=== PATIENT | male | born 1975 | race Caucasian/White ===

== ENCOUNTER 2017-02-27 10:09 | Emergency (ER) | payer OTHER, MEDICAID ==
[2017-02-27 11:25] VITALS: BP 98/66
--- NOTE | 2017-02-27 12:12 | RAD ---
INDICATION: Cough. COMPARISON: There are no prior studies available for comparison. TECHNIQUE: Dual-energy PA and lateral views of the chest were obtained. FINDINGS: The heart is within normal limits in size. Mediastinal and hilar contours appear within normal limits. The lungs are clear. No pleural effusion is present. IMPRESSION: NO EVIDENCE FOR ACTIVE CARDIOPULMONARY DISEASE.
--- NOTE | 2017-02-27 15:38 | UC ---
Respiratory Complaint HPI - HPI Summary HPI Summary: Patient presents with an unremarkable past medical history. He also complains of right elbow pain. He presents today with two day onset complaints of fever, fatigue, malaise, chest congestion and cough. He denies chest pain, abdominal pain, nausea, vomiting, diarrhea, rash. - History of Current Complaint Chief Complaint: UCGeneralIllness Stated Complaint: FEVER CHILLS COUGH Time Seen by Provider: 02/27/17 11:34 Hx Obtained From: Patient Onset/Duration: Gradual Onset, Lasting Days Severity Initially: Mild Severity Currently: Mild Pain Intensity: 0 Pain Scale Used: 0-10 Numeric Character: Cough: Nonproductive Alleviating Factors: Nothing Associated Signs And Symptoms: Positive: URI, Nasal Congestion, Sinus Discomfort - Risk Factors Pulmonary Embolism Risk Factors: Negative Pseudomonas Risk Factors: Negative Tuberculosis Risk Factors: Negative - Allergies/Home Medications Allergies/Adverse Reactions: Allergies Allergy/AdvReac Type Severity Reaction Status Date / Time No Known Allergies Allergy Verified 02/27/17 11:22 PMH/Surg Hx/FS Hx/Imm Hx Previously Healthy: Yes - Surgical History Surgical History: None - Family History Known Family History: Positive: None - Social History Occupation: Employed Full-time Lives: With Family Alcohol Use: Rare Substance Use Type: None Smoking Status (MU): Never Smoked Tobacco Review of Systems Constitutional: Fever, Fatigue Skin: Negative Eyes: Negative ENT: Negative, Nasal Discharge Respiratory: Cough Cardiovascular: Negative Gastrointestinal: Negative Genitourinary: Negative Motor: Negative Neurovascular: Negative Is Patient Immunocompromised?: No All Other Systems Reviewed And Are Negative: Yes Physical Exam Triage Information Reviewed: Yes Appearance: Ill-Appearing Vital Signs: Initial Vital Signs Temp 99 F 02/27/17 11:22 Pulse 78 02/27/17 11:22 Resp 18 02/27/17 11:22 BP 98/66 02/27/17 11:22 Pulse Ox 99 02/27/17 11:22 Vital Signs Reviewed: Yes Eye Exam: Normal ENT Exam: Normal ENT: Positive: Pharynx normal, Pharyngeal erythema Neck exam: Normal Neck: Positive: 1 Respiratory: Positive: Lungs clear, Normal breath sounds, No respiratory distress Cardiovascular Exam: Normal Abdominal Exam: Normal Musculoskeletal Exam: Normal Skin Exam: Normal UC Diagnostic Evaluation - Laboratory O2 Sat by Pulse Oximetry: 99 Respiratory Course/Dx - Course Course Of Treatment: Patient presents with an unremarkable past medial history with tow day onset complaints of fever, fatigue, malaise with chest congestion and coughing. He presents in no respiratory distess and has a nontoxic appearane. CXR was negative and the findings were reviewed with the patient. He was treated for influenza with tamiflu 75 mg twice daily for five days. He was told that if his symtpoms do no improve as anticipated he would need to be re- evaluated immediately. He verbalzied understanding of and was in agreement with the discharge plan. - Differential Dx/Diagnosis Differential Diagnosis/HQI/PQRI: Influenza Provider Diagnoses: influenza Discharge - Discharge Plan Condition: Stable Disposition: HOME Prescriptions: Oseltamivir CAP* [Tamiflu CAP*] 75 mg PO BID #10 cap Patient Education Materials: Influenza (ED) Referrals: No Primary Care Phys,NOPCP [Primary Care Provider] -
== END 2017-02-27 12:35 | disposition home or self-care (01) ==
LOC: UCEAST 10:09
DX: J11.1 Influenza due to unidentified influenza virus with other respiratory manifestations (principal); M25.521 Pain in right elbow
CPT/HCPCS: 71020; 99202; G0463

== ENCOUNTER 2017-04-13 14:52 | Emergency (ER) | payer OTHER, MEDICAID ==
[2017-04-13 17:29] VITALS: BP 126/81
--- NOTE | 2017-04-13 18:55 | UC ---
Minor Trauma HPI - HPI Summary HPI Summary: hit in the left ribs earlier this week while cutting down a tree-concerned about a fracture due to continued pain - History of Current Complaint Chief Complaint: UCGeneralIllness Stated Complaint: RIB INJURY Time Seen by Provider: 04/13/17 18:43 Hx Obtained From: Patient Onset/Duration: Sudden Onset Onset Of Pain: Post Accident Severity Initially: Moderate Severity Currently: Moderate Pain Intensity: 2 Mechanism Of Injury: Blunt Trauma Aggravating Factor(s): Nothing Alleviating Factor(s): Nothing - Allergies/Home Medications Allergies/Adverse Reactions: Allergies Allergy/AdvReac Type Severity Reaction Status Date / Time No Known Allergies Allergy Verified 04/13/17 17:20 PMH/Surg Hx/FS Hx/Imm Hx Previously Healthy: Yes - Surgical History Surgical History: None Surgery Procedure, Year, and Place: appendectomy - Family History Known Family History: Positive: None - Social History Occupation: Employed Full-time Lives: With Family Alcohol Use: Daily Alcohol Amount: 5-6 beers/ day Substance Use Type: None Smoking Status (MU): Never Smoked Tobacco Review of Systems Constitutional: Negative Skin: Negative Eyes: Negative ENT: Negative Respiratory: Negative Cardiovascular: Negative Gastrointestinal: Negative Genitourinary: Negative Motor: Negative Neurovascular: Negative Musculoskeletal: Arthralgia - left ribs Neurological: Negative Psychological: Negative Is Patient Immunocompromised?: No All Other Systems Reviewed And Are Negative: Yes Physical Exam Triage Information Reviewed: Yes Appearance: Well-Appearing, No Pain Distress, Well-Nourished Vital Signs: Initial Vital Signs Temp 99.1 F 04/13/17 17:20 Pulse 80 04/13/17 17:20 Resp 16 04/13/17 17:20 BP 126/81 04/13/17 17:20 Pulse Ox 98 04/13/17 17:20 Vital Signs Reviewed: Yes Eye Exam: Normal Eyes: Positive: Conjunctiva Clear ENT Exam: Normal ENT: Positive: Normal ENT inspection, Hearing grossly normal. Negative: Tonsillar swelling, Tonsillar exudate, Trismus, Muffled voice, Hoarse voice, Dental tenderness, Sinus tenderness Dental Exam: Normal Neck exam: Normal Neck: Positive: Supple, Nontender, No Lymphadenopathy Respiratory Exam: Normal Respiratory: Positive: Chest non-tender, Lungs clear, Normal breath sounds, No respiratory distress, No accessory muscle use Cardiovascular Exam: Normal Cardiovascular: Positive: RRR, No Murmur, Pulses Normal, Brisk Capillary Refill Abdominal Exam: Normal Abdomen Description: Positive: Nontender, No Organomegaly, Soft. Negative: CVA Tenderness (R), CVA Tenderness (L) Bowel Sounds: Positive: Present Musculoskeletal Exam: Normal Musculoskeletal: Positive: Strength Intact, ROM Intact, No Edema Neurological Exam: Normal Neurological: Positive: Alert Psychological Exam: Normal Skin Exam: Normal Diagnostics - Radiology No standard instances Xray Interpretation: No Acute Changes Radiology Interpretation Completed By: Radiologist Minor Trauma Course/Dx - Course Course Of Treatment: encouraged CT and DB, IS provided, pain med with Ibuprofen follow with pcp prn - Differential Dx/Diagnosis Provider Diagnoses: Left rib contusion Discharge - Discharge Plan Condition: Stable Disposition: HOME Prescriptions: Benzonatate CAP* [Tessalon 100 MG CAP*] 100 - 200 mg PO TID PRN #40 cap PRN Reason: Cough Ibuprofen TAB* [Motrin TAB* 600 MG] 600 mg PO Q6H PRN #40 tab PRN Reason: pain Patient Education Materials: Tennis Elbow (ED), Acute Cough (ED), Rib Contusion (ED) Referrals: Shira Goel MD [Primary Care Provider] - If Needed
--- NOTE | 2017-04-13 19:13 | RAD ---
Indication: Pain under the LEFT axilla and around the front and back of the LEFT thorax. Injury on Saturday. Comparison: February 27, 2017 chest radiograph. Technique: Dual energy PA chest and 4 view LEFT unilateral rib series. Report: Negative for LEFT rib fracture, pulmonary contusion, pleural effusion, pneumothorax. The heart, pulmonary vasculature, and mediastinal contours are unremarkable. Unremarkable soft tissue contours. IMPRESSION: No evidence for LEFT rib fracture or pneumothorax. Negative exam.
[2017-04-13] MEDS ORDERED: Albuterol HFA INHALER* 8 gm MDI INH ONE (19:18)
[2017-04-13] MEDS ORDERED: Benzonatate CAP* 100 MG PO ONE (19:20)
== END 2017-04-13 19:47 | disposition home or self-care (01) ==
LOC: UCEAST 14:52
DX: S20.20XA Contusion of thorax, unspecified, initial encounter (principal); W22.8XXA Striking against or struck by other objects, initial encounter; Y93.H9 Activity, other involving exterior property and land maintenance, building and construction; Y92.9 Unspecified place or not applicable
CPT/HCPCS: 99213; A9270-GY; G0463